=== PATIENT | male | born 2000 | race African-American/Black ===

== ENCOUNTER 2019-07-14 09:21 | Emergency (ER) | payer OTHER ==
[2019-07-14 09:26] VITALS: BP 143/82; PULSE 83; TEMP 97.5; BMI 19.2
--- NOTE | 2019-07-14 10:08 | PDOC ---
Attending Attestation - Resident Resident Name: Carlos Bae - ED Attending Attestation I have performed the following: I have examined & evaluated the patient, The case was reviewed & discussed with the resident, I agree w/resident's findings & plan, Exceptions are as noted - HPI HPI: 07/14/19 10:33 J Son is a 18 yo M who presents to the ER with a complaint of right side pain Pt states his symptoms began yesterday after waking up from a nap and coughing Pt reports that his pain went away yesterday He again began to have pain which he rates 4/10, no radiation Pain is exacerbated when he cough, no pain with palpation of the area, no pain with flexing the abdominal muscles No fevers or chills No nausea, vomiting, diarrhea No recent travel No traumatic injury to the area No hematuria, no dysuria, no pain in the back No chest pain, no shortness of breath 07/14/19 10:34 - Physicial Exam PE: 07/14/19 10:08 GENERAL: The patient is in no acute distress. ENT: Ears normal, nares patent, oropharynx clear without exudates. Moist mucous membranes. NECK: Normal range of motion, supple LUNGS: Breath sounds equal, clear to auscultation bilaterally. No wheezes, and no crackles. HEART:Regular rate and rhythm, normal S1 and S2 without murmur, rub or gallop. ABDOMEN: Soft, nontender, normoactive bowel sounds, right side is not tender to palpation, no guarding, no rebound. EXTREMITIES: Normal range of motion, no edema. NEUROLOGICAL: Cranial nerves II through XII grossly intact. Normal speech. No focal neurological deficits. SKIN: no rash 07/14/19 10:56 - Medical Decision Making 07/14/19 11:07 18-year-old male presenting to the emergency department with a complaint of right side pain for which she has taken no analgesia. No trauma to the area. No systemic signs of illness. No nausea, vomiting, diarrhea No testicular pain or swelling No dysuria Pain is not reproducible upon palpation of the affected area There is no rash Differential diagnosis still includes: Kidney stone, appendicitis, musculoskeletal pain, We will do: Basic labs UA Tylenol for pain Patient's symptoms not consistent with appendicitis 07/14/19 11:12 Laboratory Tests 07/14/19 07/14/19 07/14/19 10:15 10:15 10:15 WBC 3.1 L Hgb 14.5 Hct 44.2 Plt Count 173 BUN 13.5 Creatinine 1.2 Urine Blood Negative Urine Nitrite Negative Urine Bilirubin Negative Ur Leukocyte Esterase Negative Side pain has resolved Pt feels well Pt discharged to home Pt asked to monitor for any new symptoms, and abdominal pain or tenderness in any location (but particularly the lower quadrants and the right upper quadrant) , nausea, vomiting, diarrhea, flank pain, dysuria
[2019-07-14] MEDS ORDERED: ACETAMINOPHEN 500 MG TABLET (FP) PO ONE (10:14)
--- NOTE | 2019-07-14 10:14 | PDOC ---
History of Present Illness - General Chief Complaint: Pain Stated Complaint: RT SIDE/LWR ABD PAIN - History of Present Illness Initial Comments: 07/14/19 10:06 HPI: 18 y/o with no pmh presenting with right sided flank since yesterday afternoon around 2pm. He states when he woke up from a nap he noted pain only present when coughing and when laughing. Pain is 4/10 and non radiating. He says pain is sharp during coughing, laughing or engaging muscles. He has never has this pain before. 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 He denies fever , chills, n/v, anorexia, chest pain, SOB, productive sputum, congestion, sore throat, hematuria, dysuria, penile pain, penile discharge, testicular pain, hematuria, diarrhea, constipation, post-prandial pain. PMHx: as noted above ROS: as noted SHx: Denies tobacco use; no alcohol use; MJ last used 2 days ago Allergies: NKDA ROS: GENERAL/CONSTITUTIONAL: No fever or chills. No weakness. HEAD, EYES, EARS, NOSE AND THROAT: No change in vision. No ear pain or discharge. No sore throat. CARDIOVASCULAR: No chest pain or shortness of breath RESPIRATORY: +cough; wheezing, or hemoptysis. GASTROINTESTINAL: No nausea, vomiting, diarrhea or constipation. GENITOURINARY: No dysuria, frequency, or change in urination. MUSCULOSKELETAL: +muscle pain. No neck or back pain. SKIN: No rash NEUROLOGIC: No headache, vertigo, loss of consciousness, or change in strength/ sensation. ENDOCRINE: No increased thirst. No abnormal weight change HEMATOLOGIC/LYMPHATIC: No anemia, easy bleeding, or history of blood clots. ALLERGIC/IMMUNOLOGIC: No hives or skin allergy. PE: GENERAL: Awake, alert, and fully oriented, no acute distress HEAD: No signs of trauma, normocephalic, atraumatic EYES: EOMI, sclera anicteric, conjunctiva clear ENT: Auricles normal inspection, hearing grossly normal, nares patent, oropharynx clear without exudates. Moist mucosa NECK: Normal ROM, no lymphadenopathy LUNGS: No increased work of breathing, symmetrical chest rise, clear to auscultation bilaterally, no wheezes, crackles or rhonchi HEART: Regular rate and rhythm, normal S1 and S2, no murmurs, peripheral pulses 2+ and equal bilaterally. ABDOMEN: Soft, nondistended, nontender, normoactive bowel sounds. No guarding, no rebound. No masses. No CVAT EXTREMITIES: Normal inspection, Normal range of motion, no edema. No clubbing or cyanosis. NEUROLOGICAL: Cranial nerves II through XII grossly intact. Normal speech, normal gait, no focal sensorimotor deficits SKIN: Warm, Dry, normal turgor, no rashes or lesions noted Past History - Past Medical History Allergies/Adverse Reactions: Allergies Allergy/AdvReac Type Severity Reaction Status Date / Time No Known Allergies Allergy Verified 07/14/19 09:26 Home Medications: Ambulatory Orders NK [No Known Home Medication] 07/14/19 COPD: No - Psycho Social/Smoking Cessation Hx Smoking History: Never smoked Information on smoking cessation initiated: No Hx Alcohol Use: No Drug/Substance Use Hx: No *Physical Exam - Vital Signs Last Vital Signs Temp Pulse Resp BP Pulse Ox 97.5 F L 83 19 143/82 100 07/14/19 09:24 07/14/19 09:24 07/14/19 09:24 07/14/19 09:24 07/14/19 09:24 ED Treatment Course - LABORATORY CBC & Chemistry Diagram: 07/14/19 10:15 07/14/19 10:15 Medical Decision Making - Medical Decision Making 07/14/19 10:48 18 y/o with no pmh presenting with right sided flank since yesterday afternoon around 2pm only when engaging core muscles with no other symptoms. VSS, AF. PE unremarkable. Given lack of nausea, emesis, febrile, abd ttp appendicitis less likely. Will also workup for UTI vs kidney stone. Symptoms are most likely consistent with MSK strain -cbc, ua, cmp -tylenol 07/14/19 11:20 labs unremarkable patient with no pain currently discussed findings and possible MSK etiology patient understands return pcxns and is comfortable with DC home Discharge - Discharge Information Problems reviewed: Yes Clinical Impression/Diagnosis: Right flank pain Condition: Stable Disposition: HOME - Follow up/Referral - Patient Discharge Instructions Patient Printed Discharge Instructions: DI for Musculoskeletal Pain Additional Instructions: Return to the ED if new or worsening symptoms including pain, rash, fever. You may followup with a PCP within 1 week for further management You may take tylenol 650mg every 6-8 hours and motrin 600mg every 6-8 hours as needed for pain control - Post Discharge Activity
[2019-07-14] MEDS ORDERED: ACETAMINOPHEN 325 MG TABLET (FP) ONE (10:18)
[2019-07-14 10:38] LABS: PH,URINE 6.5 (5.0-8.0); URINE APPEARANCE CLEAR; URINE BILIRUBIN NEGATIVE (NEGATIVE); URINE COLOR YELLOW; URINE GLUCOSE (UA) NEGATIVE (NEGATIVE); URINE KETONE NEGATIVE (NEGATIVE); URINE LEUK ESTERASE NEGATIVE (NEGATIVE); URINE NITRITE NEGATIVE (NEGATIVE); URINE PROTEIN NEGATIVE (NEGATIVE); URINE UROBILINOGEN 0.2 mg/dL (0.2-1.0)
[2019-07-14 10:39] LABS: BASO % 0.7 % (0-2.0); EOS % 3.3 % (0-4.5); HEMATOCRIT 44.2 % (35.4-49); HEMOGLOBIN 14.5 GM/dL (11.7-16.9); LYMPH % 50.6 % (8-40); MCH 26.5 pg (25.7-33.7); MCHC 32.8 g/dl (32.0-35.9); MEAN CELL VOLUME 80.9 fl (80-96); MEAN PLT VOLUME 8.5 fl (7.5-11.1); NEUT % 34.4 % (42.8-82.8); PLATELET COUNT 173 K/MM3 (134-434); RBC 5.46 M/mm3 (4.00-5.60); WHITE BLOOD COUNT 3.1 K/mm3 (4.0-10.0)
[2019-07-14 11:04] LABS: ALBUMIN 4.4 g/dl (3.4-5.0); BLOOD UREA NITROGEN 13.5 mg/dL (7-18); CALCIUM 9.2 mg/dL (8.5-10.1); CREATININE 1.2 mg/dL (0.55-1.3); POTASSIUM 4.1 mmol/L (3.5-5.1); TOT PROT 7.4 g/dl (6.4-8.2)
[2019-07-14 11:31] LABS: BILIRUBIN,TOTAL 0.5 mg/dL (0.2-1)
== END 2019-07-14 11:30 | disposition home or self-care (01) ==
LOC: JER 09:21
DX: R10.31 Right lower quadrant pain (principal)
CPT/HCPCS: 36415; 80053; 81003; 85025; 99282-25